=== PATIENT | female | born 1990 | race Caucasian/White ===

== ENCOUNTER 2017-01-19 07:03 | Emergency (ER) | payer OTHER ==
[2017-01-19] MEDS ORDERED: Albuterol/Ipratropium NEB.SOL* Albuterol 2.5 MG/Ipratropium 0.5 MG 3 ML INH ONE (07:10)
[2017-01-19] MEDS ORDERED: predniSONE TAB* 20 MG PO ONE (07:32)
[2017-01-19] MEDS ORDERED: Ondansetron ODT TAB* 4 MG PO ONE (07:32)
[2017-01-19] MEDS ORDERED: Albuterol 2.5 MG/3 ML NEB.SOL* (0.083%) INH ONE (07:56)
[2017-01-19 08:39] VITALS: BP 125/76
--- NOTE | 2017-01-19 14:38 | UC ---
Evita Price Salem, scribed for Carolina Alarcon MD on 01/19/17 at 0722 . Respiratory Complaint HPI - HPI Summary HPI Summary: Patient is a 26 y/o F who presents to the with wheezing since 0200 this morning. She reports cold like symptoms (cough and chills) since yesterday, but denies any rashes. She also reports vomiting and nausea. Pt also complains of joint pain from tensing up of her body with asthma flare up. PMHx of asthma, with most recent asthma exacerbation being 1-2 weeks ago. She states she uses Mucinex and Albuterol at home typically for her asthma. Hx asthma, recently changed insurance, does not have pcp. Almost out of asthma medications. Does not have a nebulizer. Patients medication reviewed this visit. 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 Manager Industrial Hx Last Menstrual Period: mirana Onset/Duration: Gradual Onset, Lasting Hours, Still Present Timing: Constant Severity Initially: Moderate Severity Currently: Moderate Pain Intensity: 0 Pain Scale Used: 0-10 Numeric Character: Cough: Nonproductive Aggravating Factors: Nothing Alleviating Factors: Nothing Associated Signs And Symptoms: Positive: Wheezing - Allergies/Home Medications Allergies/Adverse Reactions: Allergies Allergy/AdvReac Type Severity Reaction Status Date / Time Latex Allergy Airway Verified 05/04/16 07:50 Obstruction environmental Allergy Wheezing Uncoded 05/04/16 07:50 PMH/Surg Hx/FS Hx/Imm Hx Previously Healthy: Yes - see hpi Respiratory History: Asthma - Surgical History Surgical History: Yes Surgery Procedure, Year, and Place: tooth extraction - Family History Known Family History: Positive: Cardiac Disease, Hypertension, Diabetes Negative: Respiratory Disease - Social History Alcohol Use: Occasionally Substance Use Type: None Smoking Status (MU): Never Smoked Tobacco - Immunization History Most Recent Influenza Vaccination: 2013 Most Recent Tetanus Shot: utd Review of Systems Constitutional: Chills Skin: Negative Eyes: Negative Respiratory: Other - See HPI. Gastrointestinal: Negative Genitourinary: Negative Motor: Negative Neurovascular: Negative Musculoskeletal: Negative Neurological: Negative Psychological: Negative All Other Systems Reviewed And Are Negative: Yes Physical Exam Triage Information Reviewed: Yes Appearance: Well-Nourished Vital Signs: Initial Vital Signs Temp 97.7 F 01/19/17 07:10 Pulse 80 01/19/17 07:10 Resp 22 01/19/17 07:10 BP 129/69 01/19/17 07:10 Pulse Ox 98 01/19/17 07:10 Vital Signs Reviewed: Yes Eye Exam: Normal ENT Exam: Normal Neck exam: Normal Neck: Positive: No Lymphadenopathy Respiratory Exam: Normal Respiratory: Positive: Chest non-tender, No respiratory distress - bilat insp / exp wheezes, decrease BB breath sounds. BS are equal., No accessory muscle use , Wheezing Cardiovascular Exam: Normal Cardiovascular: Positive: RRR, No Murmur, Pulses Normal, Brisk Capillary Refill , Other: - Heart rate regular, good general skin color, good capillary refill Abdominal Exam: Normal Abdomen Description: Positive: Nontender, No Organomegaly, Soft Bowel Sounds: Positive: Present Musculoskeletal Exam: Normal Musculoskeletal: Positive: Strength Intact Neurological Exam: Normal Neurological: Positive: Other: - nonfocal, grossly intact Psychological Exam: Normal - conversing easily and appropriately Skin Exam: Normal - no visible or reported rash UC Diagnostic Evaluation - Laboratory O2 Sat by Pulse Oximetry: 98 Re-Evaluation - Re-Evaluation First Eval Re-Evaluation Time: 07:47 Comment: Still wheezing, but breath sounds improved. Will order repeat Nebulizer. Second Eval Re-Evaluation Time: 08:24 Change: Improved Respiratory Course/Dx - Course Course Of Treatment: Better with improved BS s/p duoneb, received a 2nd neb ( alb only) with improvement. Ready to go home. Start po pred taper. She will call [facility] ref tel # for f/u pcp. Rx albuterol (ampules), inhaler. Also script for a nebulizer (long hx asthma). Does not appear infectious. Reviewed need for f/u if worse, fever, etc. Questions answered to the best of my ability. - Differential Dx/Diagnosis Provider Diagnoses: acute asthma exacerbation Discharge - Discharge Plan Condition: Stable Disposition: HOME Prescriptions: Albuterol 2.5MG/3ML (0.083%)* [Ventolin 2.5 MG/3 ML NEB.BRADLY*] 2.5 mg INH Q4H PRN #1 box PRN Reason: Wheezing predniSONE TAB* [Deltasone TAB*] 10 mg PO DAILY #14 tab Patient Education Materials: Asthma (ED) Forms: *Work Release Referrals: Samantha Frank MD [Primary Care Provider] - [facility] PHYSICIAN REFERRAL [Outside] Additional Instructions: Please follow up with a primary care provider in 1-2 weeks. Seek medical attention for worse or new problems in the meantime. The documentation as recorded by the Evita moreland Salem accurately reflects the service I personally performed and the decisions made by me, Carolina Alarcon MD.
== END 2017-01-19 08:42 | disposition home or self-care (01) ==
LOC: UCEAST 07:03
DX: J45.901 Unspecified asthma with (acute) exacerbation (principal)
CPT/HCPCS: 99213; A9270-GY; G0463; J7512

== ENCOUNTER 2017-02-13 19:23 | Emergency (ER) | payer SELFPAY ==
[2017-02-13] MEDS ORDERED: Albuterol/Ipratropium NEB.SOL* Albuterol 2.5 MG/Ipratropium 0.5 MG 3 ML INH ONE (19:45)
[2017-02-13] MEDS ORDERED: predniSONE TAB* 20 MG PO ONE (19:45)
--- NOTE | 2017-02-13 19:58 | ED ---
Alee Price Edward, scribed for Aden Gipson MD on 02/13/17 at 1947 . Shortness of Breath - HPI Summary HPI Summary: 26 y/o female presents to ED c/o SOB starting this morning. SOB has gotten progressively worse throughout the day and is still present. The SOB is aggravated by talking. Non smoker. Patient states her inhaler ran out recently. PMHx asthma. - History of Current Complaint Chief Complaint: EDAsthma Hx Obtained From: Patient Onset/Duration: Sudden Onset, Lasting Hours - this morning, Still Present Associated Signs & Symptoms: Negative - Allergy/Home Medications Allergies/Adverse Reactions: Allergies Allergy/AdvReac Type Severity Reaction Status Date / Time Latex Allergy Airway Verified 05/04/16 07:50 Obstruction environmental Allergy Wheezing Uncoded 05/04/16 07:50 PMH/Surg Hx/FS Hx/Imm Hx Previously Healthy: No Endocrine/Hematology History: Denies: Hx Diabetes, Hx Thyroid Disease Cardiovascular History: Denies: Hx Hypertension Respiratory History: Reports: Hx Asthma, Hx Seasonal Allergies Denies: Hx Chronic Obstructive Pulmonary Disease (COPD) GI History: Denies: Hx Ulcer - Cancer History Cancer Type, Location and Year: Seasonal Allergies - Surgical History Surgery Procedure, Year, and Place: tooth extraction Infectious Disease History: No Infectious Disease History: Denies: Hx Clostridium Difficile, Hx Hepatitis, Hx Human Immunodeficiency Virus (HIV), Hx of Known/Suspected MRSA, Hx Shingles, Hx Tuberculosis, Hx Known/ Suspected VRE, Hx Known/Suspected VRSA, History Other Infectious Disease, Traveled Outside the [place] in Last 30 Days - Family History Known Family History: Positive: Cardiac Disease, Hypertension, Diabetes Negative: Respiratory Disease - Social History Occupation: Employed Full-time Lives: Alone Alcohol Use: Occasionally Hx Substance Use: No Substance Use Type: Reports: None Hx Tobacco Use: No Smoking Status (MU): Never Smoked Tobacco Review of Systems Constitutional: Negative Eyes: Negative ENT: Negative Cardiovascular: Negative Positive: Shortness Of Breath Gastrointestinal: Negative Genitourinary: Negative Musculoskeletal: Negative Skin: Negative Neurological: Negative Psychological: Normal All Other Systems Reviewed And Are Negative: Yes Physical Exam Triage Information Reviewed: Yes Vital Signs On Initial Exam: Initial Vitals Temp Pulse Resp BP Pulse Ox 97 F 93 30 94/49 96 02/13/17 19:24 02/13/17 19:24 02/13/17 19:24 02/13/17 19:24 02/13/17 19:24 Vital Signs Reviewed: Yes Appearance: Positive: Well-Appearing, No Pain Distress - mild sob Skin: Positive: Warm Head/Face: Positive: Normal Head/Face Inspection Eyes: Positive: RALEIGH ENT: Positive: Hearing grossly normal Neck: Positive: Supple Respiratory/Lung Sounds: Positive: Wheezes - diffuse bilat exp wheezes with prolonged expiration Cardiovascular: Positive: RRR Abdomen Description: Positive: Nontender, Soft Bowel Sounds: Positive: Present Musculoskeletal: Positive: Strength/ROM Intact Neurological: Positive: Alert, Oriented to Person Place, Time Psychiatric: Positive: Affect/Mood Appropriate Diagnostics - Vital Signs Vital Signs Temp Pulse Resp BP Pulse Ox 02/13/17 19:28 97 F 93 30 94/49 96 02/13/17 19:24 97 F 93 30 94/49 96 - Laboratory Lab Statement: Any lab studies that have been ordered have been reviewed, and results considered in the medical decision making process. Re-Evaluation - Re-Evaluation First Eval Change: Improved - lungs much clearer, will d/c on pred, inhaler given to pt Course/Dx - Course Assessment/Plan: 26 y/o female presents to ED c/o SOB starting this morning. D/ C home for asthma. Given prednisone 40 mg PO. - Diagnoses Provider Diagnoses: Asthma Discharge - Discharge Plan Condition: Improved Disposition: HOME Prescriptions: predniSONE TAB* [Deltasone TAB*] 40 mg PO DAILY #8 tab Patient Education Materials: Asthma (ED) Referrals: Samantha Frank MD [Primary Care Provider] - 3 Days (Please f/u in 2-3 days please.) The documentation as recorded by the Alee moreland Edward accurately reflects the service I personally performed and the decisions made by , Aden Gipson MD.
[2017-02-13] MEDS ORDERED: Albuterol HFA INHALER* 8 gm MDI INH ONE (21:08)
[2017-02-13 21:33] VITALS: BP 100/56
== END 2017-02-13 21:33 | disposition home or self-care (01) ==
LOC: ED 19:23
DX: J45.909 Unspecified asthma, uncomplicated (principal); R06.02 Shortness of breath
CPT/HCPCS: 94640; 99283; A9270-GY; J7512

== ENCOUNTER 2017-02-28 17:35 | Emergency (ER) | payer BC ==
[2017-02-28] MEDS ORDERED: Albuterol/Ipratropium NEB.SOL* Albuterol 2.5 MG/Ipratropium 0.5 MG 3 ML INH ONE (18:54)
[2017-02-28] MEDS ORDERED: predniSONE TAB* 20 MG PO ONE (18:55)
--- NOTE | 2017-02-28 19:11 | UC ---
Baron Price Benjamin, scribed for Carolyn Sosa MD on 02/28/17 at 1845 . Shortness of Breath HPI - HPI Summary HPI Summary: 26yo female with asthma hx presents with her typical asthma symptoms today: wheezing and increase SOB. Pt states that that she uses albuterol daily, but has been out for the last 2 days. Denies fever or chills. Pt states that exercise, pollen, dust, allergies all trigger her asthma. Pt was hospitalized as a child for her asthma, receiving a breathing treatment. Pt is allergic to latex. Last prednisone was 1 month ago. Pt has appt with PCP 2 weeks. Pt states sx feel typical for her No PSHx and FHx of DM and CAD. Pt has an appointment scheduled with her PCP in 2 weeks. Reviewed pt's medication and allergy list. - History of Current Complaint Chief Complaint: UCRespiratory Stated Complaint: SOB Time Seen by Provider: 02/28/17 18:38 Hx Obtained From: Patient Hx Last Menstrual Period: iud Onset/Duration: Lasting Days - 2 days, Still Present Timing: Constant Current Severity: Mild Dyspnea At: Rest Aggrevating Factors: Allergens Alleviating Factors: Bronchodilators Associated Signs & Symptoms: Positive: Wheezing. Negative: Cough (Productive), Cough (Nonproductive), Cough (Bloody Sputum), Fever, Chills - Allergy/Home Medications Allergies/Adverse Reactions: Allergies Allergy/AdvReac Type Severity Reaction Status Date / Time Latex Allergy Airway Verified 05/04/16 07:50 Obstruction environmental Allergy Wheezing Uncoded 05/04/16 07:50 PMH/Surg Hx/FS Hx/Imm Hx Previously Healthy: Yes Respiratory History: Asthma, Bronchitis, Other Other Respiratory History: seasonal allergies - Surgical History Surgical History: Yes Surgery Procedure, Year, and Place: tooth extraction - Family History Known Family History: Positive: Cardiac Disease, Hypertension, Diabetes Negative: Respiratory Disease - Social History Occupation: Employed Full-time Lives: Alone Alcohol Use: Occasionally Substance Use Type: None Smoking Status (MU): Never Smoked Tobacco - Immunization History Most Recent Influenza Vaccination: 2013 Most Recent Tetanus Shot: utd Review of Systems Constitutional: Negative Skin: Negative Eyes: Negative ENT: Negative Respiratory: Shortness Of Breath, Other - wheezing Cardiovascular: Negative Gastrointestinal: Negative Genitourinary: Negative Motor: Negative Neurovascular: Negative Musculoskeletal: Negative Neurological: Negative Psychological: Negative All Other Systems Reviewed And Are Negative: Yes Physical Exam Triage Information Reviewed: Yes Appearance: Well-Appearing, No Pain Distress, Well-Nourished Vital Signs: Initial Vital Signs Temp 98 F 02/28/17 17:40 Pulse 91 02/28/17 17:40 Resp 17 02/28/17 17:40 BP 134/66 02/28/17 17:40 Pulse Ox 97 02/28/17 17:40 Vital Signs Reviewed: Yes Eye Exam: Normal Eyes: Positive: Conjunctiva Clear ENT Exam: Normal ENT: Positive: Pharynx normal, TMs normal Dental Exam: Normal Neck exam: Normal Neck: Positive: Supple, Nontender, No Lymphadenopathy Respiratory Exam: Normal Respiratory: Positive: Chest non-tender, No respiratory distress, No accessory muscle use, Wheezing - scattered diffuse wheeze speaking full sentence with audible wheeze intermittent cough Cardiovascular Exam: Normal Cardiovascular: Positive: RRR, No Murmur, Pulses Normal Abdominal Exam: Normal Abdomen Description: Positive: Nontender, No Organomegaly, Soft Bowel Sounds: Positive: Present Musculoskeletal Exam: Normal Musculoskeletal: Positive: Strength Intact Neurological Exam: Normal Neurological: Positive: Alert Psychological Exam: Normal Skin Exam: Normal Re-Evaluation - Re-Evaluation First Eval Re-Evaluation Time: 19:43 Change: Improved Comment: Pt markedly improved. no wheezing. reports feeling better. will d/c with Rx MDI, Albuterol nebules, pred Shortness of Breath Dx - Course Course Of Treatment: pt presents with wheeze and cough typical for asthma exacerbation. Pt out of medications. Will give neb, pred reassess - Differential Dx/Diagnosis Provider Diagnoses: asthma exacerbation. med refill Discharge - Discharge Plan Condition: Stable Disposition: HOME Prescriptions: Albuterol 2.5MG/3ML (0.083%)* [Ventolin 2.5 MG/3 ML NEB.BRADLY*] 2.5 mg INH Q4H # 30 neb.bradly Albuterol HFA INHALER* [Ventolin HFA Inhaler*] 1 puff INH Q4H PRN #1 mdi PRN Reason: Wheezing predniSONE TAB* [Deltasone TAB*] 50 mg PO DAILY #4 tab Patient Education Materials: Asthma (GEN) Referrals: Samantha Frank MD [Primary Care Provider] - Additional Instructions: - stay well hydrated. Drink plenty of non-alcoholic, non-caffinated beverages - Take prednisone once daily starting tomorrow - use your albuterol (nebulizer or puffer) every 4hours today and tomorrow, then every 4 hours as needed - Keep your follow-up appointment with your doctor - Contact your doctor or return with questions or concerns The documentation as recorded by the Baron moreland Benjamin accurately reflects the service I personally performed and the decisions made by me, Carolyn Sosa MD.
[2017-02-28 20:00] VITALS: BP 125/80
== END 2017-02-28 19:50 | disposition home or self-care (01) ==
LOC: UCEAST 17:35
DX: J45.901 Unspecified asthma with (acute) exacerbation (principal); Z91.040 Latex allergy status
CPT/HCPCS: 99213; A9270-GY; G0463; J7512

== ENCOUNTER 2017-03-12 06:14 | Inpatient (IN) | payer BC ==
[2017-03-12] MEDS ORDERED: Albuterol/Ipratropium NEB.SOL* Albuterol 2.5 MG/Ipratropium 0.5 MG 3 ML INH ONE ×2 (06:25→07:41)
[2017-03-12] MEDS ORDERED: Albuterol/Ipratropium NEB.SOL* Albuterol 2.5 MG/Ipratropium 0.5 MG 3 ML ONE (06:40)
[2017-03-12] MEDS ORDERED: cefTRIAXone(*) 1 GM in NS 0.9% 50 ML* 50 ML IVPB ONE (07:41)
[2017-03-12] MEDS ORDERED: Azithromycin IV(*) 500 MG in NS 0.9% 250 ML* 250 ML IVPB ONE (07:41)
[2017-03-12] MEDS ORDERED: methylPREDNISolone 125 MG* 2 ML VIAL IV ONE (07:41)
[2017-03-12] MEDS ORDERED: NS 0.9% 1000 ML* 1,000 ML IV SCH (07:45)
[2017-03-12 08:15] LABS: Hematocrit 40 % (35-47); Hemoglobin 13.2 g/dl (12.0-16.0); Mean Corpuscular HGB Conc 34 g/dl (31-36); Mean Corpuscular Hemoglobin 31 pg (27-31); Mean Corpuscular Volume 91 fL (80-97); Mean Platelet Volume 8 um3 (7.4-10.4); Red Blood Count 4.33 10^6/ul (4.0-5.4); Red Cell Distribution Width 14 % (10.5-15); White Blood Count 11.1 10^3/ul (3.5-10.8)
--- NOTE | 2017-03-12 08:24 | RAD ---
HISTORY: Fever, shortness of breath, wheezing COMPARISONS: February 04, 2016 VIEWS: 4: Frontal dual-energy and lateral views of the chest. FINDINGS: CARDIOMEDIASTINAL SILHOUETTE: The cardiomediastinal silhouette is normal. JOSÉ MIGUEL: The josé miguel are normal. PLEURA: The costophrenic angles are sharp. No pleural abnormalities are noted. LUNG PARENCHYMA: The lungs are clear. ABDOMEN: The upper abdomen is clear. There is no subphrenic gas. BONES AND SOFT TISSUES: No bone or soft tissue abnormalities are noted. OTHER: None. IMPRESSION: NO ACTIVE CARDIOPULMONARY DISEASE.
[2017-03-12 08:31] LABS: ALT 12 U/L (7-52); AST 14 U/L (13-39); Albumin 4.2 g/dL (3.2-5.2); Alkaline Phosphatase 48 U/L (34-104); Anion Gap 8 mmol/L (2-11); BUN/Creatinine Ratio 16.1 (8-20); Blood Urea Nitrogen 10 mg/dL (6-24); C Reactive Protein 8.39 mg/L (< 5.00); CO2 Carbon Dioxide 22 mmol/L (22-32); Calcium 9.1 mg/dL (8.6-10.3); Chloride 106 mmol/L (101-111); EGFR African American 150.8 (>60); EGFR Non-African American 117.3 (>60); Globulin 3.2 g/dL (2-4); Glucose 102 mg/dL (70-100); Potassium 3.9 mmol/L (3.5-5.0); Sodium 136 mmol/L (133-145); Total Protein 7.4 g/dL (6.4-8.9)
[2017-03-12] MEDS ORDERED: Albuterol 2.5 MG/3 ML NEB.SOL* (0.083%) INH ONE (09:30)
--- NOTE | 2017-03-12 12:28 | ED ---
Fern Price Rebecca, scribed for Lincoln Pringle MD on 03/12/17 at 0716 . Asthma - HPI Summary HPI Summary: Pt is a 26 y/o F with a PMHx of asthma who presents to ED c/o SOB and wheezing for the past week. Prior to arrival, pt treated sx with an Albuterol nebulizer, Mucinex and DayQuil/NyQuil which have not improved sx. Sx aggravated and alleviated by nothing. She additionally c/o productive cough, producing yellow fluid and clear "chunks." Notes a recent illness including fever from Tuesday ( 4 days ago) to (2 days ago). Denies edema. - History of Current Complaint Chief Complaint: EDAsthma Stated Complaint: DIFF BREATHING Time Seen by Provider: 03/12/17 07:15 Hx Obtained From: Patient Hx Last Menstrual Period: iud Onset/Duration: Lasting Weeks - 1 wek, Still Present Current Severity: Mild Pain Intensity: 2 Pain Scale Used: 0-10 Numeric Location/Character: Wheezing Aggravating Symptoms: Nothing Alleviating Symptoms: Nothing Associated Signs and Symptoms: Positive: Shortness of Breath, Other - fever. Negative: Edema - Allergy/Home Medications Allergies/Adverse Reactions: Allergies Allergy/AdvReac Type Severity Reaction Status Date / Time Latex Allergy Airway Verified 03/12/17 06:31 Obstruction environmental Allergy Wheezing Uncoded 03/12/17 06:31 PMH/Surg Hx/FS Hx/Imm Hx Endocrine/Hematology History: Denies: Hx Diabetes, Hx Thyroid Disease Cardiovascular History: Denies: Hx Hypertension Respiratory History: Reports: Hx Asthma, Hx Seasonal Allergies Denies: Hx Chronic Obstructive Pulmonary Disease (COPD) GI History: Denies: Hx Ulcer - Cancer History Cancer Type, Location and Year: Seasonal Allergies - Surgical History Surgery Procedure, Year, and Place: tooth extraction Infectious Disease History: No Infectious Disease History: Denies: Hx Clostridium Difficile, Hx Hepatitis, Hx Human Immunodeficiency Virus (HIV), Hx of Known/Suspected MRSA, Hx Shingles, Hx Tuberculosis, Hx Known/ Suspected VRE, Hx Known/Suspected VRSA, History Other Infectious Disease, Traveled Outside the [place] in Last 30 Days - Family History Known Family History: Positive: Cardiac Disease, Hypertension, Diabetes Negative: Respiratory Disease - Social History Alcohol Use: Occasionally Hx Substance Use: No Substance Use Type: Reports: None Hx Tobacco Use: No Smoking Status (MU): Never Smoked Tobacco Review of Systems Positive: Fever Positive: Shortness Of Breath, Cough - productive, Other - Wheezing Negative: Edema All Other Systems Reviewed And Are Negative: Yes Physical Exam - Summary Physical Exam Summary: General: no pain distress, mild respiratory distress Skin: warm, color reflects adequate perfusion, dry Head: normal Eyes: EOMI, RALEIGH ENT: normal Neck: supple, nontender Respiratory: Extensive wheezes bilaterally, breath sounds present Cardiovascular: RRR Abdomen: soft, nontender Bowel: present Musculoskeletal: normal, strength/ROM intact Neurological: normal, sensory/motor intact, A&O x3 Psychological: affect/mood appropriate Triage Information Reviewed: Yes Vital Signs On Initial Exam: Initial Vitals Temp Pulse Resp BP Pulse Ox 97.8 F 106 24 130/87 97 03/12/17 06:16 03/12/17 06:16 03/12/17 06:16 03/12/17 06:16 03/12/17 06:16 Vital Signs Reviewed: Yes Diagnostics - Vital Signs Vital Signs Temp Pulse Resp BP Pulse Ox 03/12/17 06:35 105 20 100 03/12/17 06:30 102 113/64 96 03/12/17 06:26 100 96 03/12/17 06:24 119/41 03/12/17 06:18 97.5 F 106 24 130/87 97 03/12/17 06:16 97.8 F 106 24 130/87 97 - Laboratory Lab Results: Lab Results 03/12/17 03/12/17 03/12/17 Range/Units 08:05 08:05 08:05 WBC 11.1 H (3.5-10.8) 10^3/ul RBC 4.33 (4.0-5.4) 10^6/ul Hgb 13.2 (12.0-16.0) g/dl Hct 40 (35-47) % MCV 91 (80-97) fL MCH 31 (27-31) pg MCHC 34 (31-36) g/dl RDW 14 (10.5-15) % Plt Count 286 (150-450) 10^3/ul MPV 8 (7.4-10.4) um3 Neut % (Auto) 77.0 (38-83) % Lymph % (Auto) 9.7 L (25-47) % Harnett % (Auto) 6.8 (1-9) % Eos % (Auto) 6.1 H (0-6) % Baso % (Auto) 0.4 (0-2) % Absolute Neuts (auto) 8.6 H (1.5-7.7) 10^3/ul Absolute Lymphs (auto) 1.1 (1.0-4.8) 10^3/ul Absolute Monos (auto) 0.8 (0-0.8) 10^3/ul Absolute Eos (auto) 0.7 H (0-0.6) 10^3/ul Absolute Basos (auto) 0 (0-0.2) 10^3/ul Absolute Nucleated RBC 0 10^3/ul Nucleated RBC % 0 Sodium 136 (133-145) mmol/L Potassium 3.9 (3.5-5.0) mmol/L Chloride 106 (101-111) mmol/L Carbon Dioxide 22 (22-32) mmol/L Anion Gap 8 (2-11) mmol/L BUN 10 (6-24) mg/dL Creatinine 0.62 (0.51-0.95) mg/dL Est GFR ( Amer) 150.8 (>60) Est GFR (Non-Af Amer) 117.3 (>60) BUN/Creatinine Ratio 16.1 (8-20) Glucose 102 H (70-100) mg/dL Lactic Acid 1.3 (0.5-2.0) mmol/L Calcium 9.1 (8.6-10.3) mg/dL Total Bilirubin 0.30 (0.2-1.0) mg/dL AST 14 (13-39) U/L ALT 12 (7-52) U/L Alkaline Phosphatase 48 (34-104) U/L C-Reactive Protein 8.39 H (< 5.00) mg/L B-Natriuretic Peptide ( - 100) pg/mL Total Protein 7.4 (6.4-8.9) g/dL Albumin 4.2 (3.2-5.2) g/dL Globulin 3.2 (2-4) g/dL Albumin/Globulin Ratio 1.3 (1-3) Beta HCG, Quant < 0.60 mIU/mL 03/12/17 Range/Units 08:05 WBC (3.5-10.8) 10^3/ul RBC (4.0-5.4) 10^6/ul Hgb (12.0-16.0) g/dl Hct (35-47) % MCV (80-97) fL MCH (27-31) pg MCHC (31-36) g/dl RDW (10.5-15) % Plt Count (150-450) 10^3/ul MPV (7.4-10.4) um3 Neut % (Auto) (38-83) % Lymph % (Auto) (25-47) % Harnett % (Auto) (1-9) % Eos % (Auto) (0-6) % Baso % (Auto) (0-2) % Absolute Neuts (auto) (1.5-7.7) 10^3/ul Absolute Lymphs (auto) (1.0-4.8) 10^3/ul Absolute Monos (auto) (0-0.8) 10^3/ul Absolute Eos (auto) (0-0.6) 10^3/ul Absolute Basos (auto) (0-0.2) 10^3/ul Absolute Nucleated RBC 10^3/ul Nucleated RBC % Sodium (133-145) mmol/L Potassium (3.5-5.0) mmol/L Chloride (101-111) mmol/L Carbon Dioxide (22-32) mmol/L Anion Gap (2-11) mmol/L BUN (6-24) mg/dL Creatinine (0.51-0.95) mg/dL Est GFR ( Amer) (>60) Est GFR (Non-Af Amer) (>60) BUN/Creatinine Ratio (8-20) Glucose (70-100) mg/dL Lactic Acid (0.5-2.0) mmol/L Calcium (8.6-10.3) mg/dL Total Bilirubin (0.2-1.0) mg/dL AST (13-39) U/L ALT (7-52) U/L Alkaline Phosphatase (34-104) U/L C-Reactive Protein (< 5.00) mg/L B-Natriuretic Peptide 29 ( - 100) pg/mL Total Protein (6.4-8.9) g/dL Albumin (3.2-5.2) g/dL Globulin (2-4) g/dL Albumin/Globulin Ratio (1-3) Beta HCG, Quant mIU/mL Result Diagrams: 03/12/17 08:05 03/12/17 08:05 Lab Statement: Any lab studies that have been ordered have been reviewed, and results considered in the medical decision making process. - Radiology CXR Xray Interpretation: No Acute Changes - NO ACTIVE CARDIOPULMONARY DISEASE. Radiology Interpretation Completed By: Radiologist Re-Evaluation - Re-Evaluation First Eval Re-Evaluation Time: 12:06 Comment: Discussed CXR and lab results. Pt continues to wheeze, but expresses that she would like to go home. Will road test the pt. Second Eval Re-Evaluation Time: 12:21 Comment: Discussed admission with the pt. Asthma Course/Dx - Course Assessment/Plan: Pt is a 26 y/o F with a PMHx of asthma who presents to ED c/o SOB and wheezing for the past week. Prior to arrival, pt treated sx with an Albuterol nebulizer, Mucinex and DayQuil/NyQuil which have not improved sx. She additionally c/o productive cough, producing yellow fluid and clear "chunks." Notes a recent illness including fever from Tuesday (4 days ago) to (2 days ago). Denies edema. WBC of 11.1, CRP of 8.39. CXR reveals no acute findings. In the ED course, pt was given 2 Duonebs, Ventolin, Rocephin, Zithromax, Solu-Medrol and fluids. PATIENT STILL HAS AUDIBLE WHEEZING AFTER 3 NEBS AND SOLUMEDROL. ADMIT HOSPITALIST STABLE. NO CRITICAL CARE TIME. - Diagnoses Provider Diagnoses: Asthma exacerbation, Bronchitis - Provider Notifications Discussed Care Of Patient With: Lucita Jonas Time Discussed With Above Provider: 12:25 Instructed by Provider To: Other - Accepts pt for admission. Discharge - Discharge Plan Condition: Stable Disposition: ADMITTED TO [facility] Referrals: Samantha Frank MD [Primary Care Provider] - The documentation as recorded by the Fern moreland Rebecca accurately reflects the service I personally performed and the decisions made by me, Lincoln Pringle MD.
[2017-03-12] MEDS ORDERED: Cetirizine* 10 MG TAB PO PRN (13:36)
[2017-03-12] MEDS: Heparin VIAL(*) 5000 UNITS/ML VIAL (FIVE THOUSAND) SUBCUT SCH ×2 (14:41→21:22)
[2017-03-12] MEDS: Albuterol/Ipratropium NEB.SOL* Albuterol 2.5 MG/Ipratropium 0.5 MG 3 ML INH SCH ×3 (14:58→22:56)
--- NOTE | 2017-03-12 15:16 | HP ---
CC: Samantha Frank MD * HISTORY AND PHYSICAL: DATE OF ADMISSION: 03/12/17 PRIMARY CARE PROVIDER: Samantha Frank MD ATTENDING PHYSICIAN: Lucita Jonas DO * (report dictated by Ana Cárdenas NP) CHIEF COMPLAINT: Shortness of breath. HISTORY OF PRESENT ILLNESS: Ms. Batres is a 26-year-old female with past medical history significant for asthma, who presented to the emergency room with complaints of shortness of breath and wheezing for 1 week. The patient states that she has been using her albuterol nebulizer approximately every 4 hours for the last week. She has also tried Mucinex, DayQuil and NyQuil at home that have not helped with her symptoms. The patient denies anything that is making her symptoms worse at this point. The patient's asthma is generally triggered by exercise, pollen, humidity and dust. The patient was recently seen at urgent care on 02/28/17 for complaints of shortness of breath, at which time she was out of her medications and got a refill and was diagnosed with an asthma exacerbation. She reports completing a course of prednisone after that urgent care visit. The patient has not been able to get in for a followup for her primary care provider. She states that she has an appointment this upcoming week. She was also diagnosed with an asthma exacerbation on 01/19/17 and treated with Prednisone. The patient reports having fevers 2 and 4 days ago in addition to chills 2 days ago. She denies any chest pain. She reports a mildly productive cough with yellow sputum with white chunks. She also reports diarrhea over the last few days. She reports mild dizziness. The patient denies any urinary symptoms. She states that she has been around multiple people with upper respiratory cold-type symptoms. It is to note that when the patient was age 6 and 8, she needed to be intubated during asthma exacerbations. She states that she is generally able to manage an asthma exacerbation at home with her albuterol nebulizer, but is feeling that this time she is just not getting better. She decided to present to the emergency room for further evaluation of her symptoms when her shortness of breath persisted. While in the emergency room, the patient received numerous DuoNebs and albuterol nebulizers. She received IV Rocephin and Zithromax. She also got IV Solu-Medrol and IV fluids. The patient was found to have significant wheezing. She was noted to be tachycardic. Her oxygen saturation was in the mid to high 90s on room air. The patient is noted to only be able to speak a couple of words at a time due to her significant shortness of breath. The hospitalists were asked to evaluate the patient for admission. PAST MEDICAL HISTORY: Asthma. PAST SURGICAL HISTORY: Status post tooth extraction at age 13. MEDICATIONS: Home medications include: 1. Albuterol HFA inhaler 1 to 2 puffs inhalation every 4 hours as needed for shortness of breath or wheeze. 2. Albuterol nebulizer 2.5 mg inhalation every 4 hours as needed for shortness of breath or wheeze. 3. Duyen 1 tablet oral daily as needed for allergy symptoms. ALLERGIES: Latex and environmental. FAMILY HISTORY: The patient's maternal grandmother had a history of myocardial infarction and cardiomyopathy. The patient's paternal aunts and uncles had a history of diabetes mellitus. She denies any family history of cancer. SOCIAL HISTORY: The patient denies tobacco or recreational drug use. She occasionally drinks alcohol. She works full-time. She lives with her partner. Her surrogate decision maker is her partner, Jayant Terrell. REVIEW OF SYSTEMS: I performed a 14-point review of systems. All the pertinent positives and negatives are mentioned in the history of present illness. The remaining review of systems are negative. PHYSICAL EXAMINATION GENERAL APPEARANCE: The patient is alert, pleasant, appears to be in no acute distress. VITAL SIGNS: Temperature 98.4, heart rate 98, respiratory rate 17, O2 sat 96% on room air, blood pressure 114/70. HEENT: Normocephalic, atraumatic. Pupils are equal and reactive to light. Extraocular movements are intact. RESPIRATORY: There is no accessory muscle use. The patient has significant expiratory and inspiratory wheezes throughout. CARDIOVASCULAR: Regular rate and rhythm. S1, S2 present. Tachycardic. There are no murmurs, rubs, or gallops heard. ABDOMEN: Soft, nontender, and nondistended. There are bowel sounds present x4. EXTREMITIES: There is no lower extremity edema. DP and PT pulses are 2+ and symmetric. MUSCULOSKELETAL: There is no clubbing or cyanosis noted. The patient exhibits good strength in all extremities. NEUROLOGICAL: The patient is alert and oriented x4. Cranial nerves II through XII are grossly intact. PSYCHOLOGICAL: The patient is calm and cooperative. SKIN: There are no rashes or abnormalities seen. DIAGNOSTIC STUDIES/LABORATORY DATA: Sodium 136, potassium 3.9, chloride 106, CO2 22, BUN 10, creatinine 0.62, glucose 102. CRP 8.34. White blood cell count 11.1, hemoglobin 13.2, hematocrit 40, and platelet count 286. Chest x-ray from today. Radiologist's impression: No active cardiopulmonary disease. IMPRESSION: Ms. Batres is a 26-year-old female with past medical history significant for asthma, who presents to the emergency room today with complaints of persistent shortness of breath. She will be admitted as an inpatient for asthma exacerbation. ASSESSMENT/PLAN: 1. Asthma exacerbation. We will give the patient DuoNebs q.4 hours while awake [id number]. We will also continue her on IV Solu-Medrol. I suspect the patient's asthma has been exacerbated by a viral illness in addition to high pollen counts and high humidity. We will provide supportive care. She will receive supplemental oxygen as needed. The patient has been encouraged to take Duyen daily. I do not feel that she needs antibiotics as I suspect that the upper respiratory symptoms are likely viral. 2. Fluids, electrolytes, and nutrition. Regular diet. 3. Code status. Full code. 4. DVT prophylaxis. She is at a moderate risk and will be placed on subcu heparin. 5. Disposition. Inpatient. TIME SPENT: Time for this admission was approximately 60 minutes, greater than half of that was spent with the patient discussing medications, past medical history, and events leading up to her arrival today and performing a physical examination. The case was reviewed with the attending, Dr. Jonas, who agrees with the plan of care. Reviewed by JAYCOB RAMIREZ 03/12/17 [id number]/[facility] #: [id number] [place]IS[place]
[2017-03-12] MEDS ORDERED: LORazepam TAB(*) 0.5 MG PO PRN (23:00)
[2017-03-13] MEDS: Albuterol/Ipratropium NEB.SOL* Albuterol 2.5 MG/Ipratropium 0.5 MG 3 ML INH SCH ×6 (03:32→23:38)
[2017-03-13] MEDS: Heparin VIAL(*) 5000 UNITS/ML VIAL (FIVE THOUSAND) SUBCUT SCH ×3 (05:40→21:34)
[2017-03-13] MEDS: methylPREDNISolone SOD 40 MG* 1 ML VIAL IV SCH ×2 (08:33→21:35)
[2017-03-13] MEDS ORDERED: ASPIRIN PO PRN (09:14)
[2017-03-13] MEDS ORDERED: ACETAMINOPHEN PO PRN (09:14)
[2017-03-13] MEDS ORDERED: CAFFEINE PO PRN (09:14)
[2017-03-13] MEDS: cefTRIAXone VIAL(*) 1,000 MG in NS 0.9% 50 ML* 50 ML IVPB SCH (10:20)
[2017-03-13] MEDS: Azithromycin IV(*) 500 MG in NS 0.9% 250 ML* 250 ML IVPB SCH (10:54)
[2017-03-13] MEDS: Mometasone/Formoter 200/5 MDI INH SCH ×2 (11:08→19:09)
--- NOTE | 2017-03-13 14:44 | PN ---
Subjective Date of Service: 03/13/17 Interval History: HOSPITALIST PROGRESS NOTE Patient seen and examined at bedside. She feels a little better today, but still dyspneic and coughing. Family History: Unchanged from Admission Social History: Unchanged from Admission Past Medical History: Unchanged from Admission Objective Active Medications: Albuterol/Ipratropium (Duoneb (Albuterol 2.5 Mg/Ipratropium 0.5 Mg)) 1 neb INH [id number] AWAKE [facility] Last Admin: 03/13/17 11:08 Dose: 1 neb Cetirizine HCl (Zyrtec*) 10 mg PO DAILY PRN; Protocol PRN Reason: Allergy Symptoms Heparin Sodium (Porcine) (Heparin Vial(*)) 5,000 units SUBCUT Q8HR [facility] Last Admin: 03/13/17 05:40 Dose: 5,000 units Ceftriaxone Sodium 1,000 mg/ (Sodium Chloride) 50 mls @ 200 mls/hr IVPB Q24H [facility] Last Admin: 03/13/17 10:20 Dose: 200 mls/hr Azithromycin 500 mg/ Sodium (Chloride) 250 mls @ 250 mls/hr IVPB Q24H [facility] Last Admin: 03/13/17 10:54 Dose: 250 mls/hr Lorazepam (Ativan Tab(*)) 0.5 mg PO Q6H PRN PRN Reason: ANXIETY Methylprednisolone Sodium Succinate (Solu-Medrol 40 Mg) 40 mg IV Q12H [facility] Last Admin: 03/13/17 08:33 Dose: 40 mg Mometasone Furoate/Formoterol Fumar (Dulera 200/5 Mdi*) 2 puff INH BID [facility] Last Admin: 03/13/17 11:08 Dose: 2 puff Cmc:Excedrin Extra (Strength) 1 dose PO Q6H PRN PRN Reason: MIGRAINE HEADACHE Last Admin: 03/13/17 10:24 Dose: 1 dose 03/12/17 03/13/17 03/13/17 22:57 00:05 04:14 Temperature 98.7 F 98.7 F Pulse Rate 93 81 95 Respiratory 20 16 16 Rate Blood Pressure 124/82 119/64 (mmHg) O2 Sat by Pulse 98 97 98 Oximetry Oxygen Devices in Use Now: None Appearance: Young lady sitting up in bed in NAD. Eyes: No Scleral Icterus Ears/Nose/Mouth/Throat: Mucous Membranes Moist Neck: Trachea Midline Respiratory: Symmetrical Chest Expansion and Respiratory Effort, - - BS+ bilaterally with diffuse rhonchi and wheezes Cardiovascular: RRR - Normal S1 and S2 Abdominal: NL Sounds; No Tenderness; No Distention Extremities: No Edema Neurological: Alert and Oriented x 3, NL Muscle Strength and Tone Lines/Tubes/Other Access: Clean, Dry and Intact Peripheral IV Nutrition: Taking PO's Result Diagrams: 03/12/17 08:05 03/12/17 08:05 Assess/Plan/Problems-Billing Assessment: Ms. Witt is a 26yo F with PMH of asthma, who presented to ED with dyspnea and cough, found to have asthma exacerbation. - Patient Problems (1) Asthma exacerbation Comment: - Patient has had more frequent symptoms since October 2016. - She has had frequent symptoms with nocturnal awakenings once a week - suspect she's transitioning from mild to moderate persistent asthma. - Continue antibiotics, steroids, bronchodilators. Will add LABA and inhaled steroids to her regimen. - Check peak flow. - Asthma education. (2) DVT prophylaxis Comment: - SQ heparin. (3) Full code status Status and Disposition: Inpatient. Has failed outpatient therapy and will likely require >48h for stabilization.
[2017-03-14] MEDS: Albuterol/Ipratropium NEB.SOL* Albuterol 2.5 MG/Ipratropium 0.5 MG 3 ML INH SCH ×6 (03:07→23:17)
[2017-03-14] MEDS: Heparin VIAL(*) 5000 UNITS/ML VIAL (FIVE THOUSAND) SUBCUT SCH ×3 (05:47→21:17)
[2017-03-14] MEDS: Mometasone/Formoter 200/5 MDI INH SCH ×2 (07:50→20:08)
[2017-03-14] MEDS: methylPREDNISolone SOD 40 MG* 1 ML VIAL IV SCH ×2 (08:53→21:16)
[2017-03-14] MEDS: cefTRIAXone VIAL(*) 1,000 MG in NS 0.9% 50 ML* 50 ML IVPB SCH (08:53)
[2017-03-14] MEDS: Azithromycin IV(*) 500 MG in NS 0.9% 250 ML* 250 ML IVPB SCH (10:04)
--- NOTE | 2017-03-14 13:56 | PN ---
Subjective Date of Service: 03/14/17 Interval History: HOSPITALIST PROGRESS NOTE Patient seen and examined at bedside. She feels better today. Still some dyspnea, but not as tight as before. Family History: Unchanged from Admission Social History: Unchanged from Admission Past Medical History: Unchanged from Admission Objective Active Medications: Albuterol/Ipratropium (Duoneb (Albuterol 2.5 Mg/Ipratropium 0.5 Mg)) 1 neb INH [id number] AWAKE [facility] Last Admin: 03/14/17 11:39 Dose: 1 neb Cetirizine HCl (Zyrtec*) 10 mg PO DAILY PRN; Protocol PRN Reason: Allergy Symptoms Heparin Sodium (Porcine) (Heparin Vial(*)) 5,000 units SUBCUT Q8HR [facility] Last Admin: 03/14/17 05:47 Dose: 5,000 units Ceftriaxone Sodium 1,000 mg/ (Sodium Chloride) 50 mls @ 200 mls/hr IVPB Q24H [facility] Last Admin: 03/14/17 08:53 Dose: 200 mls/hr Azithromycin 500 mg/ Sodium (Chloride) 250 mls @ 250 mls/hr IVPB Q24H [facility] Last Admin: 03/14/17 10:04 Dose: 250 mls/hr Lorazepam (Ativan Tab(*)) 0.5 mg PO Q6H PRN PRN Reason: ANXIETY Methylprednisolone Sodium Succinate (Solu-Medrol 40 Mg) 40 mg IV Q12H [facility] Last Admin: 03/14/17 08:53 Dose: 40 mg Mometasone Furoate/Formoterol Fumar (Dulera 200/5 Mdi*) 2 puff INH BID [facility] Last Admin: 03/14/17 07:50 Dose: 2 puff Cmc:Excedrin Extra (Strength) 1 dose PO Q6H PRN PRN Reason: MIGRAINE HEADACHE Last Admin: 03/13/17 10:24 Dose: 1 dose Vital Signs 03/13/17 03/14/17 03/14/17 23:49 04:33 07:14 Temperature 98.0 F 98.8 F Pulse Rate 73 66 76 Respiratory 18 16 19 Rate Blood Pressure 116/61 121/54 (mmHg) O2 Sat by Pulse 99 91 99 Oximetry 03/14/17 03/14/17 07:35 11:49 Temperature Pulse Rate 75 88 Respiratory 16 Rate Blood Pressure (mmHg) O2 Sat by Pulse 100 98 Oximetry Oxygen Devices in Use Now: None Appearance: Young lady sitting up in bed in NAD. Eyes: No Scleral Icterus Ears/Nose/Mouth/Throat: Mucous Membranes Moist Neck: Trachea Midline Respiratory: Symmetrical Chest Expansion and Respiratory Effort, - - BS+ bilaterally with wheezing and rhonchi at bases Cardiovascular: NL Sounds; No Murmurs; No JVD, RRR Abdominal: NL Sounds; No Tenderness; No Distention Neurological: Alert and Oriented x 3, NL Muscle Strength and Tone Lines/Tubes/Other Access: Clean, Dry and Intact Peripheral IV Nutrition: Taking PO's Result Diagrams: 03/12/17 08:05 03/12/17 08:05 Assess/Plan/Problems-Billing Assessment: Ms. Witt is a 26yo F with PMH of asthma, who presented to ED with dyspnea and cough, found to have asthma exacerbation. - Patient Problems (1) Asthma exacerbation Comment: - Patient has had more frequent symptoms since October 2016. - She has had frequent symptoms with nocturnal awakenings once a week - suspect she's transitioning from mild to moderate persistent asthma. - Continue antibiotics, steroids, bronchodilators, LABA and inhaled steroids. - Peak flow has improved from 120-375. - Asthma education. (2) DVT prophylaxis Comment: - SQ heparin. (3) Full code status Status and Disposition: Inpatient. Has failed outpatient therapy and will likely require >48h for stabilization. Anticipate d/c in AM if doing better.
[2017-03-15] MEDS: Albuterol/Ipratropium NEB.SOL* Albuterol 2.5 MG/Ipratropium 0.5 MG 3 ML INH SCH ×3 (04:14→10:20)
[2017-03-15] MEDS: Heparin VIAL(*) 5000 UNITS/ML VIAL (FIVE THOUSAND) SUBCUT SCH (06:23)
[2017-03-15 08:07] VITALS: BP 122/65
[2017-03-15] MEDS: Mometasone/Formoter 200/5 MDI INH SCH (08:31)
[2017-03-15] MEDS: methylPREDNISolone SOD 40 MG* 1 ML VIAL IV SCH (08:32)
[2017-03-15] MEDS ORDERED: Azithromycin TAB* 250 MG PO ONE (09:19)
[2017-03-15] MEDS ORDERED: ceFUROXime TAB(*) 250 MG PO ONE (09:19)
--- NOTE | 2017-03-16 03:29 | DS ---
CC: Dr. Frank * DISCHARGE SUMMARY: DATE OF ADMISSION: 03/12/17 DATE OF DISCHARGE: 03/15/17 PRIMARY CARE PROVIDER: Dr. Frank. DISCHARGE DIAGNOSIS: Asthma exacerbation secondary to bronchitis. MEDICATION LIST: 1. Albuterol 2.5 mg nebs q.4 hours p.r.n., shortness of breath or wheezing. 2. Albuterol HFA 1 to 2 puffs inhaled q.4 hours p.r.n. shortness of breath or wheezing. 3. Erythromycin 500 mg p.o. daily for four more days. 4. Symbicort 160/4.5 two puffs inhaled b.i.d. 5. Cefuroxime 500 mg p.o. q.12 hours for seven more days. 6. Fexofenadine 180 mg p.o. daily as needed for allergy symptoms. 7. Prednisone taper as follows: 40 mg p.o. daily for three days, then 30 mg for three days, 20 mg for three days, 10 mg for three days, 5 mg three days, and stop. The patient was advised to check her peak flow before and after her breathing treatments. HOSPITAL COURSE: Ms. Batres is a 26 years old lady with a past medical history as stated above that presented to the emergency room with complaints of shortness of breath and wheezing for a week. She had similar symptoms in December and again earlier this month was treated with prednisone taper. For more details about her presentation I refer to her history and physical. The patient was admitted under impression of asthma exacerbation secondary to bronchitis. Chest x-ray showed no active cardiopulmonary disease. In view of this patient's frequency of her symptoms I believe she now has moderate persistent asthma. So for that reason, long acting beta-agonist and inhaled steroid was added to her regimen on top of short acting bronchodilators , systemic steroids and antibiotics. The patient had improvement of her symptoms and also improvement of her peak flow that its lowest was 120. The patient received education regarding her asthma, although she still has some wheezing or rhonchi she sounds much improved when compared to admission. She was thought to be stable to be discharged home today to follow up with Dr. Frank on 03/17/17. I believe the patient would also benefit on seeing a project control officer and having a spirometry as outpatient after this exacerbation is resolved. PHYSICAL EXAMINATION: Vital Signs: Temperature 98.4, heart rate is 76, respiratory rate is 14, oxygen saturation is 98% on room air, blood pressure is 122/65. General: The patient is a pleasant young lady sitting up in bed, in no acute distress. CVS: Normal S1 and S2. Regular rate and rhythm. Chest: Breath sounds bilaterally with scattered rhonchi and wheeze. Abdomen is soft, bowel sounds are present. Extremities: No edema. Neurologic: She is alert and oriented x3. Able to move all 4 extremities. DIET: Regular diet. ACTIVITY: As tolerated. The patient is advised to stay off her job until 03/17. DISPOSITION: To home. STATUS WHILE IN THE HOSPITAL: Inpatient. Please keep in mind, this is a summarized version of this patient's hospital stay. If you need more information, please feel free to call me at [phone] or please obtain the full medical records. TIME SPENT: Approximately 45 minutes was spent to complete this discharge. [id number]/[facility] #: [id number] MTDD
== END 2017-03-15 11:00 | disposition home or self-care (01) | DRG 141 ==
LOC: ED 06:14 → MED 12:46
PROVIDERS: ADMIT Hospitalist; ATTEND Internal Medicine
DX: J45.41 Moderate persistent asthma with (acute) exacerbation (principal); J40 Bronchitis, not specified as acute or chronic; Z91.040 Latex allergy status; Z82.49 Family history of ischemic heart disease and other diseases of the circulatory system; Z83.3 Family history of diabetes mellitus; Z72.89 Other problems related to lifestyle; Z79.51 Long term (current) use of inhaled steroids
CPT/HCPCS: 36415; 71020; 80053; 83605; 83880; 84702; 85025; 86140; 87040; 94640; 94760; A9270-GY; J0456; J0696; J1644; J2920; J2930

== ENCOUNTER 2018-06-28 13:21 | Emergency (ER) | payer BC, OTHER ==
[2018-06-28 15:17] VITALS: BP 134/79
--- NOTE | 2018-06-28 15:53 | UC ---
Lower Extremity/Ankle HPI - HPI Summary HPI Summary: WAS AT WORK TODAY LATE MORNING WHEN SHE STEPPED IN A DRAIN HOLE AND SUSTAINED AN INVERSION INJURY RIGHT ANKLE. HAS PAIN AND SWELLING. EXTREME PAIN WITH ANY WEIGHT BEARING. - History of Current Complaint Chief Complaint: UCLowerExtremity Stated Complaint: R FOOT INJURY Time Seen by Provider: 06/28/18 15:20 Hx Obtained From: Patient Hx Last Menstrual Period: mirena Onset/Duration: Sudden Onset, Lasting Hours, Still Present Severity Initially: Moderate Severity Currently: Moderate Pain Intensity: 7 Pain Scale Used: 0-10 Numeric Aggravating Factor(s): Standing, Ambulation Alleviating Factor(s): Rest, Elevation Able to Bear Weight: Yes - WITH SEVERE PAIN - Allergies/Home Medications Allergies/Adverse Reactions: Allergies Allergy/AdvReac Type Severity Reaction Status Date / Time latex Allergy resp Verified 06/28/18 13:48 environmental Allergy Wheezing Uncoded 03/12/17 06:31 PMH/Surg Hx/FS Hx/Imm Hx - Additional Past Medical History Additional PMH: ALLERGIES Respiratory History: Asthma - Surgical History Surgical History: Yes Surgery Procedure, Year, and Place: tooth extraction - Family History Known Family History: Positive: Cardiac Disease, Hypertension, Diabetes Negative: Respiratory Disease - Social History Alcohol Use: Occasionally Substance Use Type: None Smoking Status (MU): Never Smoked Tobacco - Immunization History Most Recent Influenza Vaccination: 2013 Most Recent Tetanus Shot: utd Most Recent Pneumonia Vaccination: 2016 Review of Systems All Other Systems Reviewed And Are Negative: Yes Constitutional: Positive: Negative Skin: Positive: Negative Respiratory: Positive: Negative Cardiovascular: Positive: Negative Gastrointestinal: Positive: Negative Musculoskeletal: Positive: Arthralgia, Decreased ROM, Edema Physical Exam Triage Information Reviewed: Yes Appearance: Well-Appearing, No Pain Distress, Well-Nourished Vital Signs: Initial Vital Signs Temp 98.1 F 06/28/18 13:44 Pulse 83 06/28/18 13:44 Resp 16 06/28/18 13:44 BP 00/00 06/28/18 13:44 Pulse Ox 100 06/28/18 13:44 Vital Signs Reviewed: Yes Eyes: Positive: Conjunctiva Clear ENT: Positive: Hearing grossly normal Neck: Positive: Supple Respiratory: Positive: No respiratory distress, No accessory muscle use Cardiovascular: Positive: Pulses Normal Musculoskeletal: Positive: ROM Limited @ - RIGHT ANKLE, Edema @ - RIGHT ANKLE LATERALLY, Other: - TTP RIGHT ANKLE LATERAL MALLEOLUS AND MALLEOLAR ZONE Neurological: Positive: Alert Psychological: Positive: Age Appropriate Behavior Skin: Negative: Rashes Diagnostics - Radiology RIGHT ANKLE XRAYS Radiology Interpretation Completed By: Radiologist Summary of Radiographic Findings: NO FRACTURE Lower Extremity Course/Dx - Differential Dx/Diagnosis Provider Diagnosis: Right ankle sprain Discharge - Sign-Out/Discharge Documenting (check all that apply): Patient Departure All imaging exams completed and their final reports reviewed: Yes - Discharge Plan Condition: Stable Disposition: HOME Patient Education Materials: Ankle Sprain (ED) Forms: *Work Release Referrals: Elian Akhtar MD [Medical Doctor] - If Needed No Primary Care Phys,NOPCP [Primary Care Provider] - Additional Instructions: XRAY TODAY NEGATIVE FOR FRACTURE OR DISLOCATION. YOUR SYMPTOMS SHOULD IMPROVE SIGNIFICANTLY OVER THE NEXT 1-2 WEEKS. IF YOU DO NOT IMPROVE EXPECTED FOLLOW- UP WITH OCCUPATIONAL MEDICINE. YOU MAY BENEFIT FROM REPEAT IMAGING AT THAT TIME. OTC IBUPROFEN OR ALEVE NEEDED FOR DISCOMFORT. REST, ICE, COMPRESS, ELEVATE. SHELLIE WRAP, GEL SPLINT AND CRUTCHES NEEDED FOR SYMPTOM RELIEF. - Billing Disposition and Condition Condition: STABLE Disposition: Home
== END 2018-06-28 16:52 | disposition home or self-care (01) ==
LOC: UCEAST 13:21
DX: S93.401A Sprain of unspecified ligament of right ankle, initial encounter (principal); X50.1XXA Overexertion from prolonged static or awkward postures, initial encounter; Y92.9 Unspecified place or not applicable; Z91.040 Latex allergy status
CPT/HCPCS: 99213; G0463

== ENCOUNTER 2019-05-04 13:30 | Emergency (ER) | payer SELFPAY ==
[2019-05-04 13:49] VITALS: BP 113/77
--- NOTE | 2019-05-04 13:49 | UC ---
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 SHE COMPLAINS OF BLURRY VISION, PAIN, PHOTOPHOBIA AND DRAINAGE. IS HAVING A HARD TIME KEEPING HER EYE OPEN. IS A CONTACT LENS WEARER. TOOK THEM OUT RIGHT AFTER THE INCIDENT OCCURRED. - History of Current Complaint Chief Complaint: UCEye Stated Complaint: EYE COMPLAINT Time Seen by Provider: 05/04/19 13:38 Hx Obtained From: Patient Hx Last Menstrual Period: mirena Onset/Duration: Sudden Onset, Lasting Minutes, Still Present Timing: Constant Severity Initially: Severe Severity Currently: Severe Pain Intensity: 10 Pain Scale Used: 0-10 Numeric Character: Throbbing Aggravating Factor(s): Light, Blinking Alleviating Factor(s): Nothing Associated Signs And Symptoms: Positive: Photophobia, Drainage (Clear), Vision Impairment Right - Allergies/Home Medications Allergies/Adverse Reactions: Allergies Allergy/AdvReac Type Severity Reaction Status Date / Time latex Allergy resp Verified 06/28/18 13:48 environmental Allergy Wheezing Uncoded 03/12/17 06:31 PMH/Surg Hx/FS Hx/Imm Hx - Additional Past Medical History Additional PMH: ALLERGIES Respiratory History: Asthma - Surgical History Surgical History: Yes Surgery Procedure, Year, and Place: tooth extraction - Family History Known Family History: Positive: Cardiac Disease, Hypertension, Diabetes Negative: Respiratory Disease - Social History Alcohol Use: Occasionally Substance Use Type: None Smoking Status (MU): Never Smoked Tobacco - Immunization History Most Recent Influenza Vaccination: 2013 Most Recent Tetanus Shot: utd Most Recent Pneumonia Vaccination: 2016 Review of Systems All Other Systems Reviewed And Are Negative: Yes Constitutional: Positive: Negative Skin: Positive: Other - ERYTHEMA PERIORBITAL Eyes: Positive: Blurred Vision, Drainage, Eye Redness, Photophobia Respiratory: Positive: Negative Cardiovascular: Positive: Negative Gastrointestinal: Positive: Negative Physical Exam Triage Information Reviewed: Yes Appearance: Well-Nourished, Pain Distress - MOD/SEVERE Eyes: Positive: Conjunctiva Inflamed, Discharge - CLEAR TEARING, Other: - DIFFICULTY KEEPING RIGHT EYE OPEN. 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 DR. ROSADO (OPHTHALMOLOGY) WILL SEE THE PATIENT DIRECTLY. SHE IS TO GO DIRECTLY THERE FROM HERE. EYE WASH STATION USED FOR ABOUT 5 MINUTES PRIOR TO DEPARTURE. - Differential Dx/Diagnosis Provider Diagnosis: Chemical burn of eye Discharge ED - Sign-Out/Discharge Documenting (check all that apply): Patient Departure All imaging exams completed and their final reports reviewed: No Studies - Discharge Plan Condition: Stable Disposition: HOME Patient Education Materials: Chemical Eye [place]ord (ED) Referrals: Travon Rosado MD [Medical Doctor] - (GO DIRECTLY TO DR. ROSADO'S OFFICE FROM HERE) Additional Instructions: GO DIRECTLY TO DR. ROSADO'S OFFICE FROM HERE. HE IS AN MANAGING EDITOR AND THEY ARE EXPECTING YOU. - Billing Disposition and Condition Condition: STABLE Disposition: Home
== END 2019-05-04 13:48 | disposition home or self-care (01) ==
LOC: UCEAST 13:30
DX: T65.891A Toxic effect of other specified substances, accidental (unintentional), initial encounter (principal); T26.91XA Corrosion of right eye and adnexa, part unspecified, initial encounter; J45.909 Unspecified asthma, uncomplicated; Z91.040 Latex allergy status; Z91.09 Other allergy status, other than to drugs and biological substances; Y93.89 Activity, other specified; Y92.9 Unspecified place or not applicable
CPT/HCPCS: 99213; G0463